=== PATIENT | male | born 1940 | race Two or more races ===

== ENCOUNTER 2020-05-18 22:36 | Inpatient (IN) | payer MEDICARE, OTHER ==
[~2020-05-18] VITALS: Ht 175.3 cm; Wt 72.6 kg
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
[2020-05-19 00:53] VITALS: BP 131/68
[2020-05-19] MEDS ORDERED: VALS1TAB4 PO (00:57)
[2020-05-19] MEDS ORDERED: MAG HYDROX/AL HYDROX/SIMETH 30 ML UDC PO PRN (01:00)
[2020-05-19] MEDS ORDERED: ACETAMINOPHEN 325 MG TABLET PO PRN (01:00)
[2020-05-19] MEDS ORDERED: MAGNESIUM HYDROXIDE 30 ML UDC PO PRN (01:00)
[2020-05-19] MEDS ORDERED: BLOOD SUGAR DIAGNOSTIC 1 EACH STRIP IN ONE (01:00)
[2020-05-19 08:00] VITALS: BP 133/75
[2020-05-19 08:59] LABS: ALBUMIN 3.5 g/dL (3.4-5.0); BILIRUBIN,TOTAL 1.1 mg/dL (0.2-1.0); CALCIUM, SERUM 8.5 mg/dL (8.5-10.1); POTASSIUM 4.2 mmol/L (3.5-5.1); TOTAL PROTEIN, SERUM 6.5 g/dL (6.4-8.2)
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
[2020-05-19] MEDS ORDERED: LORAZEPAM 1 MG TABLET PO PRN (10:00)
[2020-05-19] MEDS: MULTIPLE VIT (LYCOPENE/FA/MV,CA,IRON,MIN/LUT)1 TAB PO SCH ×2 (10:00→13:18)
[2020-05-19] MEDS ORDERED: ZOLPIDEM TARTRATE 5 MG TABLET PO PRN (10:00)
[2020-05-19] MEDS: THIAMINE HCL 100 MG TABLET PO SCH ×2 (10:00→13:18)
--- NOTE | 2020-05-19 11:00 | NUR ---
dr. mancilla in to see pt. orders given.
--- NOTE | 2020-05-19 11:27 | NUR ---
INITIAL DISCHARGE PLAN: Per Nadine [phone], she wishes for pt to return home [address] [place] [address]. ANTWAN will coordinate discharged with SUJEY Glover with [facility] [phone] and . ANTWAN will help form a safe and proper discharge in collaboration with .
--- NOTE | 2020-05-19 11:28 | NUR ---
SUBSTANCE ABUSE INTERVENTION: ANTWAN provided substance abuse intervention, pt is alert and oriented x2 and unable to participate in intervention. Addendum: 05/19/20 at 1138 by PACHECO MONCADA MD is currently Ruling out dementia with behavior disturbance per pt was diagnosed with Lewy Body Dementia a few months ago.
--- NOTE | 2020-05-19 13:00 | NUR ---
CALL OUT TO DR. MARMOLEJO'S OFFICE.LEFT WORD WITH BOOSTER PUMP OPERATOR TO NEED FOR CONSULT.
--- NOTE | 2020-05-19 14:49 | NUR ---
GROUP THERAPY: SW encouraged the pt to participate in group therapy but the pt is confused and disorganized. Pt is talking to self unable to engage in an appropriate conversation at this time.
--- NOTE | 2020-05-19 15:00 | NUR ---
WALKING ABOUT ON THE UNIT FEW TIMES DURING SHIFT.
[2020-05-19 16:00] VITALS: BP 138/78
--- NOTE | 2020-05-19 17:47 | NUR ---
dr. beck here,cat scan ordered.
[2020-05-19 19:38] VITALS: BP 134/77
[2020-05-19 20:00] VITALS: BP 134/77
[2020-05-19] MEDS: QUETIAPINE FUMARATE 25 MG TABLET PO SCH (21:52)
--- NOTE | 2020-05-19 22:10 | NUR ---
GPS RN NOTE: ANXIETY/EASILY AGITATED PATIENT IS AWAKE IN HIS BED, TALKING TO HIMSELF, NOT MAKING ANY SENSE & SUDDENLY GOT AGITATED & YELLED TWICE, APPROACHED TO THE PATIENT & ASKED HIM WHAT HAPPENED, PATIENT ANSWERED," NOTHING, I AM SLEEPING." PATIENT DID CALM DOWN AFTER THAT EPISODE & FELL ASLEEP. WILL CONTINUE TO MONITOR FOR ANY CHANGES.
[2020-05-20 07:55] LABS: CREATININE 0.9 mg/dL (0.6-1.3)
[2020-05-20 08:00] VITALS: BP 150/78
--- NOTE | 2020-05-20 08:10 | NUR ---
PER RN, PATIENT IS AGITATED AND NOT READY @0810. RN WILL CALL BACK WHEN PATIENT IS READY FOR CT EXAM.
[2020-05-20] MEDS: SERTRALINE HCL 25 MG TABLET PO SCH (08:49)
[2020-05-20] MEDS: MULTIPLE VIT (LYCOPENE/FA/MV,CA,IRON,MIN/LUT)1 TAB PO SCH (08:49)
[2020-05-20] MEDS: THIAMINE HCL 100 MG TABLET PO SCH (08:49)
--- NOTE | 2020-05-20 08:49 | NUR ---
gps rn note: med refusal patient refused all 0900 medication stating "I'm not taking sh##". Patient is easily agitated and despite education continues to refuse. will continue to monitor
--- NOTE | 2020-05-20 13:52 | NUR ---
GPS RN note: CT head Scan Refusal patient refused CT head scan for a second time today despite education. Patient became agitated and yelled at RN stating that he had one in the past. Will continue to monitor
[2020-05-20] MEDS ORDERED: HOME MED MISCELLANEOUS XX SCH (15:30)
[2020-05-20 16:00] VITALS: BP 138/74
[2020-05-20] MEDS: QUETIAPINE FUMARATE 25 MG TABLET PO SCH (21:31)
--- NOTE | 2020-05-20 21:32 | NUR ---
GPS RN NOTES: REFUSED QUETIAPINE PT REFUSED REFUSED QUETIAPINE 25 MG PO ORDERED. PT STATED, "NO. IM SUPPOSE TO GO HOME TOMORROW. BUT IF IM BAG TOMORROW, ILL TAKE IT. " EXPLAIN RISKS AND BENEFITS. PT STILL REFUSED X3. CONTINUE TO MONITOR.
--- NOTE | 2020-05-21 03:24 | NUR ---
GPS RN NOTE: ANXIETY/EASILY AGITATED PATIENT IS AWAKE IN HIS BED AND TALKING TO HIMSELF. PT GOT AGITATED & YELLED. APPROACHED TO THE PATIENT & ASKED HIM WHAT HAPPENED, PATIENT ANSWERED," GET MY OUT OF HERE DAMN IT!" REORIENTED PT TO TIME, PLACE, AND SITUATION. OFFERED PT ATIVAN PO PRN ORDERED. PT REFUSED. EXPLAIN RISKS AND BENEFITS. PT STILL REFUSED X3. PATIENT LAY BACK IN BED STILL AWAKE. PT CALM AT THIS TIME. WILL CONTINUE TO MONITOR FOR ANY CHANGES.
[2020-05-21 08:00] VITALS: BP 120/73
[2020-05-21] MEDS: MULTIPLE VIT (LYCOPENE/FA/MV,CA,IRON,MIN/LUT)1 TAB PO SCH (08:28)
[2020-05-21] MEDS: HYDROCHLOROTHIAZIDE 25 MG TABLET PO SCH (08:28)
[2020-05-21] MEDS: SERTRALINE HCL 25 MG TABLET PO SCH (08:29)
[2020-05-21] MEDS: VALSARTAN 80 MG TABLET PO SCH (08:29)
[2020-05-21] MEDS: THIAMINE HCL 100 MG TABLET PO SCH (08:29)
--- NOTE | 2020-05-21 10:04 | NUR ---
Pt. Refused CT HEAD W/O at the moment. RN Aware. Please call Radiology when patient is ready at ext. [phone].
--- NOTE | 2020-05-21 12:35 | NUR ---
FAMILY CONTACT: SW spoke with pts Nadine ([phone]) regarding pts refusal of medication. SW explained that MD has filed for a medication capacity hearing. agrees with treatment plan.
--- NOTE | 2020-05-21 14:38 | NUR ---
[facility] CONTACT: SW received a call from Marissa, complex case manager at [facility] Department SMART Team ([phone]). She provided SW with outpatient services for pt and asked SW to refer pt to the [facility]isted Outpatient Treatment program ([phone]) and also stated to refer pt [facility] ([phone].) She requested SW contact her when pt is discharged for follow up at home.
--- NOTE | 2020-05-21 14:47 | NUR ---
GROUP NOTE: Pt is not appropriate for group or individual therapy at this time. Pt is non-compliant with medication and pts mood is psychotic and unpredictable. Pt is easily agitated. Pt is unable to engage in a meaningful conversation at pt is confused, disorganized, and disoriented and diagnosed with Lewy Body Dementia.
--- NOTE | 2020-05-21 16:07 | NUR ---
FAMILY CONTACT: SW contacted pts Nadine ([phone]) and left a voicemail informing her pts Medication Capacity Hearing and PC Hearing is scheduled for Sunday05/24/20 at 0930am.
[2020-05-21 20:00] VITALS: BP 132/74
[2020-05-21 20:49] VITALS: BP 132/74
[2020-05-21] MEDS: QUETIAPINE FUMARATE 25 MG TABLET PO SCH (21:08)
[2020-05-22] MEDS: VALSARTAN 80 MG TABLET PO SCH (08:49)
[2020-05-22] MEDS: MULTIPLE VIT (LYCOPENE/FA/MV,CA,IRON,MIN/LUT)1 TAB PO SCH (08:51)
[2020-05-22] MEDS: THIAMINE HCL 100 MG TABLET PO SCH (08:51)
[2020-05-22] MEDS: HYDROCHLOROTHIAZIDE 25 MG TABLET PO SCH (08:51)
[2020-05-22] MEDS: SERTRALINE HCL 25 MG TABLET PO SCH (08:51)
--- NOTE | 2020-05-22 08:51 | NUR ---
GPS/TN PT REFUSED AM SCHEDULED MEDS. AGREED ON DIOVAN ONLY. PT STATES: " BLOOD PRESSURE PILL ONLY...."
--- NOTE | 2020-05-22 10:30 | NUR ---
Dr. Perez made aware by the coating and embossing unit operator that Riese hearing is scheduled of Saturday, June 23 at 9:30 AM.
[2020-05-22 16:00] VITALS: BP 139/79
[2020-05-22 20:00] VITALS: BP 112/67
[2020-05-22 20:34] VITALS: BP 112/67
[2020-05-22] MEDS: QUETIAPINE FUMARATE 25 MG TABLET PO SCH ×2 (22:00→23:14)
--- NOTE | 2020-05-22 22:00 | NUR ---
GPS SUJEY NOTES REFUSED SEROQUEL DOSE THIS TIME.SAYS HE HAS HIS OWN MEDICINE COMING Addendum: 05/23/20 at 0539 by CLOVER BROOKS RN SEROQUEL DOSE ABLE TO TAKE BY PATIENT ORALLY AT 2314 WITH APPLE SAUCE
--- NOTE | 2020-05-22 23:14 | NUR ---
GPS RN NOTES APPEARS AGITATED,MEDICATED WITH ATIVAN 1MG PO,ALONG WITH SEROQUEL 25MG PO MIXED WITH APPLE SAUCE,TAKEN WELL.UP ON THELMA CHAIR THIS TIME,BEING WATCH BY ROMELIA REIS,
[2020-05-23 08:00] VITALS: BP 105/68
[2020-05-23] MEDS: THIAMINE HCL 100 MG TABLET PO SCH (09:00)
[2020-05-23] MEDS: HYDROCHLOROTHIAZIDE 25 MG TABLET PO SCH (09:00)
[2020-05-23] MEDS: SERTRALINE HCL 25 MG TABLET PO SCH (09:00)
[2020-05-23] MEDS: MULTIPLE VIT (LYCOPENE/FA/MV,CA,IRON,MIN/LUT)1 TAB PO SCH (09:00)
[2020-05-23] MEDS: VALSARTAN 80 MG TABLET PO SCH (09:00)
--- NOTE | 2020-05-23 09:30 | NUR ---
gps/rn pt refused am meds offered x3
[2020-05-23 15:58] VITALS: BP 105/71
[2020-05-23 19:42] VITALS: BP 119/67
[2020-05-23 20:00] VITALS: BP 119/67
[2020-05-23] MEDS: QUETIAPINE FUMARATE 25 MG TABLET PO SCH (22:14)
[2020-05-24 08:00] VITALS: BP 127/72
[2020-05-24] MEDS: THIAMINE HCL 100 MG TABLET PO SCH ×2 (08:31→08:45)
[2020-05-24] MEDS: HYDROCHLOROTHIAZIDE 25 MG TABLET PO SCH ×2 (08:32→08:44)
[2020-05-24] MEDS: VALSARTAN 80 MG TABLET PO SCH ×2 (08:32→08:44)
[2020-05-24] MEDS: SERTRALINE HCL 25 MG TABLET PO SCH ×2 (08:32→08:45)
[2020-05-24] MEDS: MULTIPLE VIT (LYCOPENE/FA/MV,CA,IRON,MIN/LUT)1 TAB PO SCH ×2 (08:39→08:43)
[2020-05-24] MEDS: risperiDONE 1 MG TABLET PO SCH ×2 (10:21→17:29)
[2020-05-24] MEDS ORDERED: OLANZAPINE 10 MG VIAL IM PRN (10:30)
--- NOTE | 2020-05-24 11:35 | NUR ---
FAMILY CONTACT: SW contacted pts Nadine ([phone]) and left a voicemail informing her that pt is now RIESED.
--- NOTE | 2020-05-24 14:47 | NUR ---
GROUP NOTE: Pt is not appropriate for group or individual therapy at this time. Pt is non-compliant with medication and was RIESED on this day. Pts mood is psychotic and unpredictable. Pt is easily agitated. Pt is unable to engage in a meaningful conversation at pt is confused, disorganized, and disoriented and diagnosed with Lewy Body Dementia.
[2020-05-24 16:00] VITALS: BP 112/70
[2020-05-24 20:15] VITALS: BP 101/63
[2020-05-24] MEDS: QUETIAPINE FUMARATE 25 MG TABLET PO SCH (21:37)
--- NOTE | 2020-05-25 07:03 | NUR ---
GPS CLOSING NOTE PATIENT SLEPT WELL AT NIGHT, PARANOID, TALKING TO HIMSELF LOUD AT TIMES, REDIRECTABLE. DUE MEDS TAKE & TOLERATED WELL. VITALS WNL. AMBULATORY/STEADY, CONTINENT. NO S/S OF ACUTE DISTRESS NOTED.
[2020-05-25 08:00] VITALS: BP 128/77
[2020-05-25] MEDS: VALSARTAN 80 MG TABLET PO SCH (08:18)
[2020-05-25] MEDS: risperiDONE 1 MG TABLET PO SCH ×2 (08:18→16:30)
[2020-05-25] MEDS: HYDROCHLOROTHIAZIDE 25 MG TABLET PO SCH (08:19)
[2020-05-25] MEDS: SERTRALINE HCL 25 MG TABLET PO SCH (08:19)
[2020-05-25] MEDS: THIAMINE HCL 100 MG TABLET PO SCH (08:19)
[2020-05-25] MEDS: MULTIPLE VIT (LYCOPENE/FA/MV,CA,IRON,MIN/LUT)1 TAB PO SCH (08:30)
[2020-05-25] MEDS ORDERED: diphenhydrAMINE HCL 50 MG CAPSULE PO PRN (09:30)
--- NOTE | 2020-05-25 15:25 | NUR ---
GROUP NOTE: Pt is not appropriate for group or individual therapy at this time. Pt is confused, disorganized, and disoriented and diagnosed with Lewy Body Dementia.
[2020-05-25 16:00] VITALS: BP 111/65
--- NOTE | 2020-05-25 19:37 | NUR ---
RN NOTES PATIENT IN BED, ASLEEP IN BED. ALERT AND ORIENTED X2-3. NO SIGNS OF ACUTE DISTRESS. FORGETFUL, EASILY AGITATED, AND PARANOID. PT IS AMBULATORY. DISCUSSED PLAN OF CARE. BED IN LOWEST POSITION, LOCKED, AND WILL CONTINUE TO MONITOR.
[2020-05-25 20:22] VITALS: BP 128/77
[2020-05-26 08:00] VITALS: BP 127/73
[2020-05-26] MEDS: SERTRALINE HCL 25 MG TABLET PO SCH (08:41)
[2020-05-26] MEDS: THIAMINE HCL 100 MG TABLET PO SCH (08:41)
[2020-05-26] MEDS: HYDROCHLOROTHIAZIDE 25 MG TABLET PO SCH (08:43)
[2020-05-26] MEDS: VALSARTAN 80 MG TABLET PO SCH (08:46)
[2020-05-26] MEDS: MULTIPLE VIT (LYCOPENE/FA/MV,CA,IRON,MIN/LUT)1 TAB PO SCH (09:00)
[2020-05-26] MEDS: risperiDONE 1 MG TABLET PO SCH ×2 (09:15→17:11)
--- NOTE | 2020-05-26 14:16 | NUR ---
GROUP NOTE: Pt is not appropriate for group or individual therapy at this time. Pt is confused, disorganized, and disoriented and diagnosed with Lewy Body Dementia.
[2020-05-26 16:00] VITALS: BP 137/68
[2020-05-26 20:05] VITALS: BP 124/80
[2020-05-27 08:00] VITALS: BP 127/74
[2020-05-27] MEDS: SERTRALINE HCL 25 MG TABLET PO SCH (08:50)
[2020-05-27] MEDS: VALSARTAN 80 MG TABLET PO SCH (08:50)
[2020-05-27] MEDS: THIAMINE HCL 100 MG TABLET PO SCH (08:50)
[2020-05-27] MEDS: risperiDONE 1 MG TABLET PO SCH ×3 (08:50→16:20)
[2020-05-27] MEDS: HYDROCHLOROTHIAZIDE 25 MG TABLET PO SCH (08:53)
[2020-05-27] MEDS: MULTIPLE VIT (LYCOPENE/FA/MV,CA,IRON,MIN/LUT)1 TAB PO SCH (08:55)
--- NOTE | 2020-05-27 09:28 | NUR ---
FAMILY CONTACT: ANTWAN contacted pts Nadine ([phone]) to inform her pt will be discharged on Sunday05/29/20. agreed to pick pt up at 10am on 05/29/20.
[2020-05-27] MEDS ORDERED: risperiDONE 1 MG TABLET PO SCH (09:30)
[2020-05-27] MEDS ORDERED: OLANZAPINE 10 MG VIAL IM PRN (09:30)
--- NOTE | 2020-05-27 09:34 | NUR ---
[facility] CONTACT: ANTWAN contacted Marissa immigration case manager at [facility] Department SMART Team ([phone]) and left a voicemail informing her pt will be discharged on 05/29/20.
--- NOTE | 2020-05-27 09:41 | NUR ---
AOT: ANTWAN contacted Assisted Outpatient Treatment program ([phone]) and spoke with Adalberto, hospice patient care secretary who will email ANTWAN a flier and application to determine if pt meets criteria.
--- NOTE | 2020-05-27 09:58 | NUR ---
AOT: SW received application and flyer for AOT program, per qualifications pt does not meet criteria for referral as pt does not have 2 or more psychiatric hospitalization within the last 48 months. This is pts first psychiatric hospitalization.
--- NOTE | 2020-05-27 10:17 | NUR ---
FAMILY CONTACT: SW contacted pts Elisa ([phone]) requesting to pick pt up on Sunday05/31/20. SW agreed with discharge date.
--- NOTE | 2020-05-27 12:54 | NUR ---
[facility] CONTACT: ANTWAN received a call from Marissa, caser at [facility] Department SMART Team ([phone]) ANTWAN informed her of pts discharge date for Sunday05/01/20. ANTWAN informed her that pt does not meet criteria for referral to AOT. Marissa also stated that pt needs to consent for outpatient treatment with [facility]. ANTWAN informed her that pt has Dementia and is unable to consent to treatment. Marissa states that she will follow up with pt at home next week.
--- NOTE | 2020-05-27 12:57 | NUR ---
FAMILY CONTACT: SW received a call from pts daughter Radha ([phone]) requesting discharge information. SW informed her that pts will be picking pt up on Sunday05/31/20 at 10am. Daughter agreed with discharge plan.
--- NOTE | 2020-05-27 14:46 | NUR ---
GROUP NOTE: Pt is not appropriate for group or individual therapy at this time. Pt is confused, disorganized, and disoriented and diagnosed with Dementia.
[2020-05-27 16:00] VITALS: BP 103/67
[2020-05-27 19:50] VITALS: BP 105/66
[2020-05-27 20:00] VITALS: BP 105/66
[2020-05-28 07:02] VITALS: BP 105/66
[2020-05-28 08:00] VITALS: BP 117/77
[2020-05-28] MEDS: THIAMINE HCL 100 MG TABLET PO SCH (09:17)
[2020-05-28] MEDS: SERTRALINE HCL 25 MG TABLET PO SCH (09:17)
[2020-05-28] MEDS: VALSARTAN 80 MG TABLET PO SCH (09:17)
[2020-05-28] MEDS: HYDROCHLOROTHIAZIDE 25 MG TABLET PO SCH (09:18)
[2020-05-28] MEDS: risperiDONE 1 MG TABLET PO SCH ×3 (09:18→17:02)
[2020-05-28] MEDS: MULTIPLE VIT (LYCOPENE/FA/MV,CA,IRON,MIN/LUT)1 TAB PO SCH (09:21)
--- NOTE | 2020-05-28 09:46 | NUR ---
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
[2020-05-28 16:00] VITALS: BP 123/73
--- NOTE | 2020-05-28 19:51 | NUR ---
GPS RN NOTES: RECEIVED PT AWAKE, A/O X2. PT COMPLAINED OF HEADACHE, TYLENOL 325MG 2 TABS 650MG GIVEN PO ORDERED. PT CURRENTLY LAYING IN BED. NO S/S OF DISTRESS, WILL CONTINUE TO MONITOR. Addendum: 05/28/20 at 1956 by TRU LAURENT RN CHARTED ON THE WRONG PT PLEASE DISREGARD
[2020-05-28 20:00] VITALS: BP 126/80
--- NOTE | 2020-05-29 06:34 | NUR ---
GPS RN CLOSING NOTE: PT LAYING IN BED AWAKE A/O X2. SLEPT MOST OF THE NIGHT. NO S/S OF ANY DISTRESS AT THIS TIME. NO BEHAVIORAL ISSUES AT THIS TIME. ENDORSING TO AM SHIFT.
[2020-05-29 08:00] VITALS: BP 119/71
[2020-05-29] MEDS: SERTRALINE HCL 25 MG TABLET PO SCH (08:36)
[2020-05-29] MEDS: THIAMINE HCL 100 MG TABLET PO SCH (08:36)
[2020-05-29] MEDS: VALSARTAN 80 MG TABLET PO SCH (08:37)
[2020-05-29] MEDS: HYDROCHLOROTHIAZIDE 25 MG TABLET PO SCH (08:37)
[2020-05-29] MEDS: MULTIPLE VIT (LYCOPENE/FA/MV,CA,IRON,MIN/LUT)1 TAB PO SCH (08:38)
[2020-05-29] MEDS: risperiDONE 1 MG TABLET PO SCH ×3 (08:38→16:38)
[2020-05-29 16:00] VITALS: BP 116/72
[2020-05-29 20:00] VITALS: BP 102/56
[2020-05-29 20:25] VITALS: BP 102/56
[2020-05-30 08:00] VITALS: BP 100/67
[2020-05-30] MEDS: risperiDONE 1 MG TABLET PO SCH ×3 (08:28→16:53)
[2020-05-30] MEDS: SERTRALINE HCL 25 MG TABLET PO SCH (08:28)
[2020-05-30] MEDS: THIAMINE HCL 100 MG TABLET PO SCH (08:28)
[2020-05-30] MEDS: VALSARTAN 80 MG TABLET PO SCH (08:28)
[2020-05-30] MEDS: HYDROCHLOROTHIAZIDE 25 MG TABLET PO SCH (08:29)
[2020-05-30] MEDS: MULTIPLE VIT (LYCOPENE/FA/MV,CA,IRON,MIN/LUT)1 TAB PO SCH (08:33)
--- NOTE | 2020-05-30 09:00 | NUR ---
RN NOTE- PT IN BED ISOLATIVE INTERACTIVE HOWEVER. INITIATES, SOME CONFUSION NOTED. FORGETFUL DURING CONVERSATION DENYING SI HI AH VH PO INTAKE GOOD MED COMPLIANT
[2020-05-30 16:00] VITALS: BP 99/56
[2020-05-30 21:17] VITALS: BP 103/70
--- NOTE | 2020-05-30 21:30 | NUR ---
GPS RN NOTE NURSE WAS ABLE TO ASSESS BOTH ARMS & BOTH LEGS FOR WEEKLY ASSESSMENT. PATIENT REFUSED FULL BODY ASSESSMENT & SAID," I AM OK, MY SKIN IS FINE." EASILY AGITATED. PATIENT CONTINUED TO REFUSE FULL BODY SKIN ASSESSMENT DESPITE OF RISKS & BENEFITS EXPLANATIONS.
[2020-05-31 08:00] VITALS: BP 139/80
[2020-05-31] MEDS: MULTIPLE VIT (LYCOPENE/FA/MV,CA,IRON,MIN/LUT)1 TAB PO SCH (08:05)
[2020-05-31] MEDS: VALSARTAN 80 MG TABLET PO SCH (08:05)
[2020-05-31 08:06] VITALS: BP 139/80
[2020-05-31] MEDS: THIAMINE HCL 100 MG TABLET PO SCH (08:06)
[2020-05-31] MEDS: HYDROCHLOROTHIAZIDE 25 MG TABLET PO SCH (08:06)
[2020-05-31] MEDS: SERTRALINE HCL 25 MG TABLET PO SCH (08:06)
[2020-05-31] MEDS: risperiDONE 1 MG TABLET PO SCH (08:06)
--- NOTE | 2020-05-31 09:00 | NUR ---
RN NOTE- ALERT ORIENTED TO PERSON PLACE MED COMPLIANT FOCUS ON DC THIS MORNING DENIES ALL
--- NOTE | 2020-05-31 09:05 | NUR ---
DISCHARGE NOTE: Pt will be discharged at 10:00am via private vehicle home [address] [place] [address]. Pts Elisa ([phone]) will be picking pt up and transporting home. Pts mood is calm with congruent affect. Pt is alert and oriented x1 and insight and judgement is impaired. Pt denies visual/auditory hallucinations and denies suicidal/homicidal ideation. Pt will follow up with [facility] [address] [place] [address] on Sunday06/04/20 for an intake before 4:00pm and will also follow up with Wharf Worker: Dr. Perlita Carnes [address], [place] [address] [phone]. The multidisciplinary exit care form was done, printed, signed, and given to the patient.
--- NOTE | 2020-05-31 10:10 | NUR ---
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
== END 2020-05-31 11:30 | disposition home or self-care (01) | DRG 885 ==
LOC: GPS 05-19 00:04
PROVIDERS: ADMIT Psychiatry & Neurology Psychiatry; ATTEND Internal Medicine
DX: F29 Unspecified psychosis not due to a substance or known physiological condition (principal); F03.91 Unspecified dementia, unspecified severity, with behavioral disturbance; F41.9 Anxiety disorder, unspecified; F10.10 Alcohol abuse, uncomplicated; Y90.9 Presence of alcohol in blood, level not specified; Z79.899 Other long term (current) drug therapy; I10 Essential (primary) hypertension; F17.200 Nicotine dependence, unspecified, uncomplicated; Z98.890 Other specified postprocedural states
CPT/HCPCS: 36415; 70450-TC; 80053-TC; 80061-TC; 82565-TC; 82962-TC; 87081-TC